=== PATIENT | male | born 1980 | race Caucasian/White ===

== ENCOUNTER 2024-02-23 21:48 | Emergency (ER) | payer BC, OTHER ==
[~2024-02-23] VITALS: Ht 182.9 cm; Wt 101.8 kg
[2024-02-23 22:33] LABS: Basophils # (auto) 0 10 ^3/uL (0-0.2); Basophils % (auto) 0.4 % (0.0-2.0); Eosinophils # (auto) 0.1 10 ^3/uL (0-0.8); Eosinophils % (auto) 1.4 % (0.0-7.0); Hematocrit 41.2 % (41.0-53.0); Hemoglobin 14.1 g/dL (13.5-17.5); Lymphocytes # (auto) 1.8 10 ^3/uL (0.4-5.4); Mean Corpuscular Hemoglobin 30.2 pg (28.0-32.0); Mean Corpuscular Hgb Conc. 34.4 g/dL (32.0-36.0); Mean Corpuscular Volume 87.9 fL (80.0-100.0); Monocytes % (auto) 10.4 % (0.0-12.0); Neutrophils % (auto) 69.8 % (37.0-80.0); Red Blood Cells 4.68 10^6/uL (4.5-5.90)
[2024-02-23] MEDS: HYDROmorphone HCL 2 MG/ML VL/or syr IM ONE (22:45)
[2024-02-23 22:49] LABS: Alanine Aminotransferase 39 U/L (7-40); Alkaline Phosphatase 76 U/L (46-116); Anion Gap 8 (5-15); Aspartate Aminotransferase 46 U/L (13-40); BUN/Creatinine Ratio 14.4 (10.0-20.0); Blood Urea Nitrogen 26 mg/dL (9-23); Calcium 10.8 mg/dL (8.5-10.1); Carbon Dioxide 27 mmol/L (20-30); Chloride 103 mmol/L (98-107); Glucose 91 mg/dL (74-106); Potassium 3.8 mmol/L (3.5-5.1); Sodium 138 mmol/L (136-145)
[2024-02-23 22:50] LABS: Albumin 4.8 g/dL (3.2-4.8); Bilirubin, Total 0.7 mg/dL (0.2-1.0); Total Protein 7.5 g/dL (5.7-8.2)
[2024-02-23] MEDS ORDERED: IOHEXOL 300 MG/ML 100ML BOTTLE IJ ONE (23:10)
[2024-02-24] MEDS ORDERED: IBUP-1456 PO (01:18)
[2024-02-24] MEDS ORDERED: HYDR-4798 PO (01:18)
[2024-02-24] MEDS: KETOROLAC TROMETH 60MG/2ML VIAL IM ONE (02:49)
[2024-02-24 02:55] VITALS: BP 92/65; PULSE 75; RESP 20; TEMP 97.8; O2SAT 97
== END 2024-02-24 02:54 | disposition home or self-care (01) ==
LOC: ER 21:48
DX: S20.212A Contusion of left front wall of thorax, initial encounter (principal); S30.1XXA Contusion of abdominal wall, initial encounter; V86.56XA Driver of dirt bike or motor/cross bike injured in nontraffic accident, initial encounter; Y93.89 Activity, other specified; Y92.89 Other specified places as the place of occurrence of the external cause; Y99.8 Other external cause status
CPT/HCPCS: 36415; 71260; 74177; 80053; 85025; 96372; 99285; J1170; J1885; Q9967